=== PATIENT | female | born 1955 | race African-American/Black ===

== ENCOUNTER 2016-10-27 12:31 | Emergency (ER) | payer OTHER ==
[2016-10-27 12:43] VITALS: BP 144/79; PULSE 82; TEMP 98; BMI 47.5
[2016-10-27] MEDS ORDERED: KETOROLAC TROMETHAMINE 60 MG/2 ML VIAL IM ONE (13:18)
[2016-10-27] MEDS ORDERED: KETOROLAC TROMETHAMINE 60 MG/2 ML VIAL ONE (13:19)
--- NOTE | 2016-10-27 13:20 | PDOC ---
History of Present Illness - General Chief Complaint: Pain Stated Complaint: LEGS PAIN Time Seen by Provider: 10/27/16 13:14 History Source: Patient Exam Limitations: No Limitations - History of Present Illness Initial Comments: 10/27/16 13:33 Patient here with chronic leg pain and peripheral neuropathy due to her diabetes and peripheral ocular disease. takes pain medications [place] but did not receive her adequate pain relief today. Is at the hospital for mammogram, and thinks increasing activity caused her increasing amount of pain. Is requesting a shot of Toradol to help with the pain management. has had in the past has never had issue. Naprosyn gives her stomach complaints. Severity: reports: moderate Pain Location: reports: lower extremity Past History - Travel Traveled outside of the country in the last 30 days: No Close contact w/someone who was outside of country & ill: No (bilateral feet) - Past Medical History Allergies/Adverse Reactions: Allergies Allergy/AdvReac Type Severity Reaction Status Date / Time shellfish derived Allergy Mild Swelling Verified 10/27/16 12:40 naproxen AdvReac Mild edema Verified 10/27/16 12:40 iv contrast Allergy Severe Difficulty Uncoded 10/27/16 12:40 Breathing Home Medications: Ambulatory Orders Atorvastatin Ca [Lipitor -] 20 mg PO HS 03/17/14 Tizanidine HCl [Zanaflex] 4 mg PO TID PRN 03/17/14 Ziprasidone HCl [Geodon] 20 mg PO DAILY 03/17/14 Amlodipine Besylate [Norvasc -] 10 mg PO DAILY 04/17/14 Ammonium Lactate Lotion [Lac-Hydrin 12% Lotion -] 1 applic TP ASDIR 04/17/14 Diclofenac Sodium [Voltaren] 100 gm TP TID PRN 04/17/14 Furosemide [Lasix -] 40 mg PO DAILY 04/17/14 Montelukast Na [Singulair -] 10 mg PO HS 04/17/14 Potassium Chloride [K-Dur] 20 meq PO DAILY 04/17/14 Ranitidine [Zantac -] 150 mg PO DAILY 04/17/14 Hydroxyzine Pamoate [Vistaril -] 25 mg PO TID 05/14/14 Insulin Glargine,Hum.rec.anlog [Lantus Solostar PEN (NF)] 18 units SQ HS Multivit with Iron-Minerals [Compete] 1 each PO DAILY 11/02/14 Sitagliptin Phosphate [Januvia -] 100 mg PO DAILY@0700 02/14/16 Doxercalciferol [Hectorol] 1 mcg PO DAILY 04/11/16 Oxycodone HCl [Oxycontin] 60 mg PO BID #60 tab.er.12h MDD 2 10/03/16 Pregabalin [Lyrica -] 50 mg PO BID MDD 1 10/03/16 Asthma: Yes Cancer: No Cardiac Disorders: No CVA: No COPD: Yes CHF: No Diabetes: Yes (insulin dependent, with neuropathy) Hypercholesterolemia: Yes Liver Disease: No Seizures: No Thyroid Disease: Yes - Surgical History Abdominal Surgery: Yes (hernia) Cholecystectomy: Yes - Immunization History Immunization Up to Date: Yes - Psycho/Social/Smoking Cessation Hx Suicidal Ideation: No Smoking History: Current every day smoker Have you smoked in the past 12 months: Yes Number of Cigarettes Smoked Daily: 20 Information on smoking cessation initiated: No 'Breaking Loose' booklet given: 12/08/15 Hx Alcohol Use: No Drug/Substance Use Hx: No Substance Use Type: Alcohol, Cocaine, Marijuana Hx Substance Use Treatment: Yes (detox, rehab) Trauma Specific PMHX - Complaint Specific PMHX Arthritis: Yes Review of Systems - Review of Systems Able to Perform ROS?: Yes Is the patient limited Armenian proficient: Yes Constitutional: Yes: Symptoms Reported, See HPI, Malaise HEENTM: No: Symptoms Reported Respiratory: No: Symptoms reported ABD/GI: No: Symptoms Reported : No: Symptoms Reported Musculoskeletal: Yes: Symptoms Reported, See HPI All Other Systems: Reviewed and Negative *Physical Exam - Vital Signs Last Vital Signs Temp Pulse Resp BP Pulse Ox 98.0 F 82 18 144/79 99 10/27/16 12:40 10/27/16 12:40 10/27/16 12:40 10/27/16 12:40 10/27/16 12:40 - Physical Exam General Appearance: Yes: Nourished, Appropriately Dressed, Apparent Distress HEENT: positive: CRISTELA, Normal ENT Inspection, TMs Normal, Pharynx Normal Neck: positive: Supple. negative: Tender Cardiovascular: positive: Regular Rhythm Extremity: positive: Normal Range of Motion. negative: Normal Capillary Refill (sluggish / chronic PVD) Neurologic: positive: plumber and tinner II-XII NML intact, Fully Oriented, Alert, Normal Mood/ Affect, Normal Response, Motor Strength 07/28 Progress Note - Progress Note Progress Note: chronic pain - medicated with Torodol. Has appt with PMD Sunday *DC/Admit/Observation/Transfer Diagnosis at time of Disposition: Diabetic neuropathy - Discharge Dispostion Disposition: HOME Condition at time of disposition: Stable Admit: No - Patient Instructions Printed Discharge Instructions: DI for Chronic Pain -- Adult Additional Instructions: Appointment with Dr. Infante for pain management and continue medications as prescribed.
== END 2016-10-27 13:25 | disposition home or self-care (01) ==
LOC: JERFT 12:31
PROC: 3E0233Z Introduction of Anti-inflammatory into Muscle, Percutaneous Approach (ICD-10-PCS; principal; 2016-10-27)
DX: M79.604 Pain in right leg (principal); M79.605 Pain in left leg; G89.29 Other chronic pain; E11.42 Type 2 diabetes mellitus with diabetic polyneuropathy; Z79.4 Long term (current) use of insulin; J45.909 Unspecified asthma, uncomplicated; J44.9 Chronic obstructive pulmonary disease, unspecified; E78.00 Pure hypercholesterolemia, unspecified; F17.210 Nicotine dependence, cigarettes, uncomplicated
CPT/HCPCS: 96372; 99281-25

== ENCOUNTER 2022-06-15 09:12 | Emergency (ER) | payer OTHER ==
[2022-06-15 09:22] VITALS: BP 165/62; PULSE 99; RESP 18; TEMP 97.7; BMI 42.0
== END 2022-06-15 11:19 | disposition home or self-care (01) ==
LOC: JER 09:12
DX: L29.9 Pruritus, unspecified (principal)
CPT/HCPCS: 99281-25